=== PATIENT | female | born 1955 | race Caucasian/White ===

== ENCOUNTER → 2018-02-24 | Outpatient (CLI) | payer OTHER | LOC: FIMAGING 18:47 | PROVIDERS: ATTEND Physician Assistant | DX: M67.951 Unspecified disorder of synovium and tendon, right thigh (principal); M24.851 Other specific joint derangements of right hip, not elsewhere classified ==

== ENCOUNTER → 2019-04-11 | Outpatient (CLI) | payer OTHER | LOC: FIMAGING 13:24 ==